=== PATIENT | female | born 1945 | race African-American/Black ===

== ENCOUNTER 2023-11-15 20:30 | Inpatient (IN) ==
[2023-11-15 21:02] LABS: ABS Basophils 0.1 10^3/uL (0.0-0.1); ABS Lymphocytes 1.6 10^3/uL (1.0-4.8); ABS Monocytes 0.6 10^3/uL (0.0-0.9); ABS Neutrophils 11.2 10^3/uL (1.5-7.6); Eosinophil % 0.2 %; Hematocrit 31.7 % (35-45); Hemoglobin 10.4 g/dL (11.5-14.3); Lymphocyte % 11.6 %; Mean Corpuscular Hemoglobin 27.7 pg (27-33); Mean Corpuscular Hgb Conc 32.8 g/dL (31-36); Mean Corpuscular Volume 84.5 fL (80-97); Mean Platelet Volume 8.9 fL (7.5-11.2); Platelet Count 357 10^3/uL (150-450); Red Blood Count 3.76 10^6/uL (3.63-4.92); White Blood Count 13.5 10^3/uL (3.8-11.8)
[2023-11-15 21:22] LABS: Albumin 3.1 g/dL (3.2-5.2); Albumin/Globulin Ratio 0.7 (1-3); Calcium 8.8 mg/dL (8.6-10.3); Creatinine, Serum 1.44 mg/dL (0.51-0.95); Globulin 4.3 g/dL (2-4); Potassium 3.6 mmol/L (3.5-5.0); Total Bilirubin 0.4 mg/dL (0.2-1.0); Total Protein 7.4 g/dL (6.4-8.9); eGFR CKD-EPI 37.2 (>60)
[2023-11-15 21:31] LABS: INR 1.08 (0.83-1.13)
[2023-11-15 21:38] LABS: Rapid COVID-19 Molecular Undetected (Undetected)
[2023-11-15 21:50] LABS: Influenza A Molecular Negative (Negative); Influenza B Molecular Negative (Negative)
[2023-11-15] MEDS: Heparin DRIP 25,000 UNITS BAG 25,000 UNITS/250 ML BAG IV SCH (22:46)
[2023-11-15] MEDS ORDERED: Heparin 5000 UNITS/ML 1 mL VIAL IV SCH (23:00)
[2023-11-16] MEDS ORDERED: NS 0.9% 500 ml BAG 500 ML IV ONE (00:34)
[2023-11-16 00:50] LABS: High Sensitivity Troponin 1 Hr 1479 pg/mL (<15)
[2023-11-16 03:18] LABS: High Sensitivity Troponin 3 Hr 1830 pg/mL (<15)
[2023-11-16 05:05] LABS: ABS Eosinophils 0.1 10^3/uL (0.0-0.5); ABS Monocytes 0.9 10^3/uL (0.0-0.9); ABS Neutrophils 9.6 10^3/uL (1.5-7.6); ABS Nucleated RBC 0.01 10^3/ul; Eosinophil % 0.9 %; Hematocrit 31.1 % (35-45); Lymphocyte % 15.5 %; Mean Corpuscular Hemoglobin 27.3 pg (27-33); Mean Corpuscular Hgb Conc 32.2 g/dL (31-36); Mean Corpuscular Volume 84.6 fL (80-97); Platelet Count 341 10^3/uL (150-450); Red Blood Count 3.68 10^6/uL (3.63-4.92); Red Cell Distribution Width 17.1 % (12-17); White Blood Count 12.7 10^3/uL (3.8-11.8)
[2023-11-16] MEDS: cefTRIAXone 1 gm/50 mL D5W 1 GM/50 ML BAG IV SCH (10:52)
[2023-11-16] MEDS ORDERED: Potassium Chlor 20 meq TAB.ER PO ONE (16:36)
[2023-11-16 16:57] LABS: HDL Cholesterol 29.7 mg/dL
[2023-11-16 22:35] LABS: Calcium 8.5 mg/dL (8.6-10.3); Creatinine, Serum 1.55 mg/dL (0.51-0.95); Potassium 3.5 mmol/L (3.5-5.0); eGFR CKD-EPI 34.1 (>60)
[2023-11-16] MEDS: hydrALAZINE 20 mg/ml 1 ML Vial IV IV SLOW PU PRN (22:48)
[2023-11-17] MEDS: KCL 20 MEQ/100 ML IVPREMIX 20 MEQ/100 ML BAG IV SCH ×3 (02:49→09:17)
[2023-11-17 04:30] LABS: ABS Basophils 0.1 10^3/uL (0.0-0.1); ABS Eosinophils 0.1 10^3/uL (0.0-0.5); ABS Lymphocytes 3.7 10^3/uL (1.0-4.8); ABS Neutrophils 9.2 10^3/uL (1.5-7.6); ABS Nucleated RBC 0.01 10^3/ul; Hemoglobin 10.7 g/dL (11.5-14.3); Lymphocyte % 26.4 %; Mean Corpuscular Hemoglobin 27.8 pg (27-33); Mean Corpuscular Hgb Conc 33.4 g/dL (31-36); Mean Platelet Volume 9.1 fL (7.5-11.2); Platelet Count 413 10^3/uL (150-450); Red Blood Count 3.85 10^6/uL (3.63-4.92); Red Cell Distribution Width 16.9 % (12-17); White Blood Count 14.1 10^3/uL (3.8-11.8)
[2023-11-17 04:48] LABS: Calcium 8.8 mg/dL (8.6-10.3); Creatinine, Serum 1.47 mg/dL (0.51-0.95); Magnesium 1.9 mg/dL (1.9-2.7); Potassium 3.2 mmol/L (3.5-5.0); eGFR CKD-EPI 36.3 (>60)
[2023-11-17] MEDS ORDERED: KCL 20 MEQ/100 ML IVPREMIX 20 MEQ/100 ML BAG IV SCH (08:00)
[2023-11-17] MEDS: cefTRIAXone 1 gm/50 mL D5W 1 GM/50 ML BAG IV SCH (09:21)
[2023-11-17] MEDS ORDERED: Regadenoson 0.4 MG/5 ML SYRINGE ONE (11:51)
[2023-11-17] MEDS ORDERED: Aminophylline 25 MG/ML VIAL ONE (11:51)
[2023-11-17] MEDS: Heparin DRIP 25,000 UNITS BAG 25,000 UNITS/250 ML BAG IV SCH (15:16)
[2023-11-17 15:39] LABS: Anion Gap 9 mmol/L (2-16); Blood Urea Nitrogen 29 mg/dL (6-24); CO2 Carbon Dioxide 17 mmol/L (22-32); Calcium 8.5 mg/dL (8.6-10.3); Chloride 111 mmol/L (101-111); Creatinine, Serum 1.45 mg/dL (0.51-0.95); Glucose 112 mg/dL (70-100); Sodium 137 mmol/L (135-145); eGFR CKD-EPI 36.9 (>60)
[2023-11-17 15:45] LABS: Urine Appearance Turbid; Urine Bilirubin Negative (Negative); Urine Blood 2+ (Negative); Urine Color Yellow; Urine Glucose Negative (Negative); Urine Ketones Negative (Negative); Urine Nitrite Negative (Negative); Urine Protein 1+(30 mg/dL) (Negative); Urine Urobilinogen Negative (Negative)
[2023-11-17 15:49] LABS: Urine Bacteria 2+ (Absent); Urine Red Blood Cell 3+(>10/hpf) (Absent); Urine Squamous Epithelial Cell Present (Absent); Urine White Blood Cell 3+(>20/hpf) (Absent)
[2023-11-17 16:46] LABS: Potassium, Whole Blood 4.7 mmol/L (3.4-4.5)
[2023-11-18] MEDS: KCL 20 MEQ/100 ML IVPREMIX 20 MEQ/100 ML BAG IV SCH ×3 (03:56→13:01)
[2023-11-18] MEDS: hydrALAZINE 20 mg/ml 1 ML Vial IV IV SLOW PU PRN (04:04)
[2023-11-18 05:54] LABS: ABS Basophils 0.1 10^3/uL (0.0-0.1); ABS Eosinophils 0.1 10^3/uL (0.0-0.5); ABS Monocytes 0.9 10^3/uL (0.0-0.9); ABS Neutrophils 10.3 10^3/uL (1.5-7.6); ABS Nucleated RBC 0.01 10^3/ul; Hematocrit 33.7 % (35-45); Lymphocyte % 14.7 %; Mean Corpuscular Hemoglobin 27.4 pg (27-33); Mean Corpuscular Hgb Conc 32.6 g/dL (31-36); Mean Corpuscular Volume 84.2 fL (80-97); Nucleated Red Blood Cells % 0.1 %/100WBC (0.0-0.8); Platelet Count 383 10^3/uL (150-450); Red Cell Distribution Width 16.9 % (12-17); White Blood Count 13.3 10^3/uL (3.8-11.8)
[2023-11-18 06:11] LABS: Creatinine, Serum 1.33 mg/dL (0.51-0.95); Magnesium 1.8 mg/dL (1.9-2.7); Potassium 3.8 mmol/L (3.5-5.0)
[2023-11-18] MEDS ORDERED: Magnesium Sulf 4 GM/100 ML IV 4,000 MG/100 ML BAG IVPB ONE (07:10)
[2023-11-18] MEDS: cefTRIAXone 1 gm/50 mL D5W 1 GM/50 ML BAG IV SCH (08:28)
[2023-11-18] MEDS: Heparin DRIP 25,000 UNITS BAG 25,000 UNITS/250 ML BAG IV SCH (18:17)
[2023-11-19] MEDS: cefTRIAXone 1 gm/50 mL D5W 1 GM/50 ML BAG IV SCH (09:55)
[2023-11-19] MEDS: hydrALAZINE 20 mg/ml 1 ML Vial IV IV SLOW PU PRN (10:05)
[2023-11-19 10:37] LABS: Hematocrit 31.3 % (35-45); Hemoglobin 10.2 g/dL (11.5-14.3); Mean Corpuscular Hemoglobin 27.6 pg (27-33); Mean Corpuscular Hgb Conc 32.7 g/dL (31-36); Mean Corpuscular Volume 84.3 fL (80-97); Mean Platelet Volume 8.7 fL (7.5-11.2); Platelet Count 380 10^3/uL (150-450); Red Blood Count 3.71 10^6/uL (3.63-4.92); Red Cell Distribution Width 17.3 % (12-17); White Blood Count 13.8 10^3/uL (3.8-11.8)
[2023-11-19 11:12] LABS: Calcium 8.7 mg/dL (8.6-10.3); Creatinine, Serum 1.38 mg/dL (0.51-0.95); Magnesium 2.7 mg/dL (1.9-2.7); Potassium 4.2 mmol/L (3.5-5.0); eGFR CKD-EPI 39.2 (>60)
[2023-11-19 12:23] LABS: ABS Basophils 0.1 10^3/uL (0.0-0.1); ABS Eosinophils 0.3 10^3/uL (0.0-0.5); ABS Lymphocytes 2.4 10^3/uL (1.0-4.8); ABS Monocytes 0.9 10^3/uL (0.0-0.9); ABS Neutrophils 10.2 10^3/uL (1.5-7.6); ABS Nucleated RBC 0.01 10^3/ul; Eosinophil % 1.9 %; Lymphocyte % 17.2 %; RBC Morphology Normal (Normal)
[2023-11-19] MEDS ORDERED: Lidocaine 1% VIAL 10 MG/ML 30 ML VIAL ONE (13:25)
[2023-11-19] MEDS ORDERED: Iodixanol 320 (CONTRAST) 100 ML SDV ONE (13:26)
[2023-11-19] MEDS ORDERED: Heparin 2 UNITS/ML IVPREMIX 3,000 UNIT/1,500 ML BAG IV ONE (13:26)
[2023-11-19] MEDS ORDERED: fentaNYL 100 mcg/2 ml 50 MCG/ML VIAL ONE (14:11)
[2023-11-19] MEDS ORDERED: Midazolam 5 mg/5 ml VIAL 1 mg/ml 5 ml VIAL (5 mg) ONE (14:11)
[2023-11-19] MEDS ORDERED: Atropine 1 MG/ML INJ 1 ML VIAL ONE (14:49)
[2023-11-20] MEDS: cefTRIAXone 1 gm/50 mL D5W 1 GM/50 ML BAG IV SCH (08:56)
[2023-11-20 14:07] VITALS: BP 147/84
== END 2023-11-20 17:35 | disposition home or self-care (01) | DRG 271 ==
LOC: ED 20:30 → SUATTDRO 21:03 → EDHOLD 21:03 → MEDTELE 21:53
PROVIDERS: ADMIT Internal Medicine; ATTEND Student in an Organized Health Care Education/Training Program